=== PATIENT | female | born 1995 | race Caucasian/White ===

== ENCOUNTER 2017-11-13 19:37 | Outpatient (CLI) | payer OTHER | END 2017-11-13 22:11 | disposition home or self-care (01) | LOC: OBT 19:37 → L-D 19:39 → OBT 22:11 | DX: O62.9 Abnormality of forces of labor, unspecified (principal); Z3A.39 39 weeks gestation of pregnancy | CPT/HCPCS: Z7500 ==

== ENCOUNTER 2017-11-18 04:20 | Inpatient (IN) | payer OTHER ==
[2017-11-18] MEDS ORDERED: OXYTOCIN 30 UNITS/LR 500 ML IV ×3 (05:30→17:30)
[2017-11-18] MEDS ORDERED: IBUPROFEN 600 MG TAB PO (05:30)
[2017-11-18] MEDS ORDERED: MISOPROSTOL 200 MCG TAB PR ×2 (05:30→17:30)
[2017-11-18] MEDS ORDERED: CARBOPROST 250 MCG INJ IM ×2 (05:30→17:30)
[2017-11-18] MEDS ORDERED: METHYLERGONOVINE 0.2 MG INJ IM ×2 (05:30→17:30)
[2017-11-18] MEDS ORDERED: LIDOCAINE 1% (MPF) 30 ML INJ INJ (05:30)
[2017-11-18 06:40] LABS: WHITE BLOOD COUNT 12.2 10^3/ul (4.8-10.8)
[2017-11-18 06:40] LABS: ADD MAN DIFF? NO; BASOPHILS % 0.2 % (0.0-2.0); EOSINOPHILS # 0.1 10^3/ul (0.0-0.5); EOSINOPHILS % 0.8 % (0.0-7.0); HEMATOCRIT 38.8 % (37.0-47.0); HEMOGLOBIN 13.1 g/dl (12.0-16.0); LYMPHOCYTES # 2.6 10^3/ul (0.8-2.9); LYMPHOCYTES % 21.2 % (15.0-51.0); MEAN CORPUSCULAR HEMOGLOBIN 29.6 pg (29.0-33.0); MEAN CORPUSCULAR HGB CONC 33.8 g/dl (32.0-37.0); MEAN CORPUSCULAR VOLUME 87.6 fl (82.0-101.0); MEAN PLATELET VOLUME 12.9 fl (7.4-10.4); MONOCYTE # 0.7 10^3/ul (0.3-0.9); MONOCYTES % 5.7 % (0.0-11.0); NEUTROPHIL # 8.7 10^3/ul (1.6-7.5); NEUTROPHILS % 71.5 % (39.0-77.0); PLATELET COUNT 188 10^3/UL (140-415); RED BLOOD COUNT 4.43 10^6/ul (4.20-5.40); RED CELL DISTRIBUTION WIDTH 14.1 % (11.5-14.5)
[2017-11-18] MEDS: LACTATED RINGER'S 1,000 ML IV* ×4 (06:45→14:07)
[2017-11-18 07:10] LABS: PROTIME 12.2 Sec (11.9-14.9)
[2017-11-18 07:11] LABS: PARTIAL THROMBOPLASTIN TIME 28.5 Sec (25.0-35.0)
[2017-11-18] MEDS: BUTORPHANOL 2 MG INJ IV (07:15)
[2017-11-18] MEDS: CLINDAMYCIN 900 MG/D5W (PMX) 50 ML IV (08:04)
[2017-11-18] MEDS ORDERED: FENTAnyl 2MCG/ML-ROPIV 0.2% 100 ML (08:44)
[2017-11-18] MEDS ORDERED: ONDANSETRON 4 MG INJ IV (09:00)
[2017-11-18] MEDS ORDERED: FENTAnyl 2MCG/ML-ROPIV 0.2% 100 ML BAG EPI (09:00)
[2017-11-18] MEDS ORDERED: DIPHENHYDRAMINE 50 MG INJ IV (09:00)
[2017-11-18] MEDS ORDERED: NALOXONE (0.4 MG/ML) INJ IV (09:00)
[2017-11-18] MEDS ORDERED: EPHEDrine SULFATE 50 MG/5 ML SYG IV (09:00)
[2017-11-18 13:47] LABS: HEPATITIS B SURFACE ANTIGEN NEGATIVE (NEGATIVE)
[2017-11-18 15:04] LABS: RAPID PLASMA REAGIN NONREACTIVE (NR)
[2017-11-18] MEDS: OXYTOCIN 30 UNITS/LR 500 ML IV ×2 (15:36→16:02)
[2017-11-18] MEDS ORDERED: ZOLPIDEM 5 MG TAB PO (17:30)
[2017-11-18] MEDS ORDERED: OXYCODONE/ASPIRIN (4.88/325) TAB PO (17:30)
[2017-11-18] MEDS: IBUPROFEN 600 MG TAB PO ×2 (18:17→23:31)
[2017-11-18] MEDS: WITCH HAZEL/GLYCERIN PAD PR (18:18)
[2017-11-18] MEDS: BENZOCAINE 20% 56 ML SPRAY TOP (18:19)
[2017-11-18] MEDS: LANOLIN 7 GM TUBE TOP (18:19)
[2017-11-18] MEDS: SENNA/DOCUSATE NA (8.6MG/50MG) TAB PO (21:00)
[2017-11-18] MEDS: OXYCODONE/ASPIRIN (4.88/325) TAB PO (21:00)
[2017-11-19] MEDS: OXYCODONE/ASPIRIN (4.88/325) TAB PO (02:26)
[2017-11-19] MEDS: IBUPROFEN 600 MG TAB PO ×4 (06:05→23:57)
[2017-11-19 08:28] LABS: ADD MAN DIFF? NO
[2017-11-19 08:33] LABS: WHITE BLOOD COUNT 14.2 10^3/ul (4.8-10.8)
[2017-11-19 08:33] LABS: BASOPHILS % 0.2 % (0.0-2.0); EOSINOPHILS # 0.2 10^3/ul (0.0-0.5); EOSINOPHILS % 1.1 % (0.0-7.0); HEMATOCRIT 35.1 % (37.0-47.0); HEMOGLOBIN 11.6 g/dl (12.0-16.0); LYMPHOCYTES # 3.1 10^3/ul (0.8-2.9); LYMPHOCYTES % 21.8 % (15.0-51.0); MEAN CORPUSCULAR HEMOGLOBIN 28.7 pg (29.0-33.0); MEAN CORPUSCULAR VOLUME 86.9 fl (82.0-101.0); MEAN PLATELET VOLUME 12.5 fl (7.4-10.4); MONOCYTE # 0.8 10^3/ul (0.3-0.9); MONOCYTES % 5.8 % (0.0-11.0); NEUTROPHILS % 70.5 % (39.0-77.0); PLATELET COUNT 162 10^3/UL (140-415); RED BLOOD COUNT 4.04 10^6/ul (4.20-5.40); RED CELL DISTRIBUTION WIDTH 14.6 % (11.5-14.5)
[2017-11-19] MEDS: SENNA/DOCUSATE NA (8.6MG/50MG) TAB PO ×2 (09:54→21:00)
[2017-11-20] MEDS: IBUPROFEN 600 MG TAB PO ×3 (06:00→17:52)
[2017-11-20] MEDS: SENNA/DOCUSATE NA (8.6MG/50MG) TAB PO ×2 (09:46→21:00)
[2017-11-20] MEDS: DIPHTH/TET/ACEL PERTUSS (ADULT) 0.5 ML VIAL IM* (09:46)
[2017-11-20] MEDS: WITCH HAZEL/GLYCERIN PAD PR (17:52)
[2017-11-20] MEDS: ACETAMINOPHEN 325 MG TAB PO (22:04)
== END 2017-11-20 22:55 | disposition home or self-care (01) | DRG 775 ==
LOC: OBT 04:20 → L-D 04:20 → OBT 05:20 → L-D 05:20 → PP1 17:26
PROVIDERS: Obstetrics & Gynecology
PROC: 10E0XZZ Delivery of Products of Conception, External Approach (ICD-10-PCS; principal; 2017-11-18)
PROC: 0W8NXZZ Division of Female Perineum, External Approach (ICD-10-PCS; 2017-11-18)
PROC: 4A1HXCZ Monitoring of Products of Conception, Cardiac Rate, External Approach (ICD-10-PCS; 2017-11-18)
DX: O48.0 Post-term pregnancy (principal); Z37.0 Single live birth; Z3A.40 40 weeks gestation of pregnancy
CPT/HCPCS: 62319; 76815; 85025; 85610; 85730; 86592; 86850; 86900; 86901; 87340